=== PATIENT | male | born 1960 | race Two or more races ===

== ENCOUNTER 2020-10-13 09:48 | Outpatient (REF) | payer BC, SELFPAY ==
[2020-10-13 10:39] LABS: MANUAL DIFF FLAG NO
[2020-10-13 10:43] LABS: Basophils Percent Auto 0.6 % (0-2); Eosinophils Absolute Auto 0.2 X10*3/uL (0.0-0.4); Eosinophils Percent Auto 2.5 % (0-4); Hemoglobin 13.7 g/dl (14.0-18.0); Imm Gran Abs Auto 0.02 X10*3/uL (0.00-0.03); Imm Gran Pct Auto 0.3 % (0.0-0.4); Lymphocytes Absolute Auto 2.2 X10*3/uL (1.2-4.9); Lymphocytes Percent Auto 33.7 % (20-40); Mean Corpuscular HGB Conc 32.6 g/dl (31.0-36.0); Mean Corpuscular Hemoglobin 30.4 pg (27.0-33.0); Mean Corpuscular Volume 93.1 fL (80-98); Mean Platelet Volume 10.9 fL (9.4-12.4); Monocytes Absolute Auto 0.4 X10*3/uL (0.1-1.2); Monocytes Percent Auto 6.3 % (2-11); Neutrophils Absolute Auto 3.7 X10*3/uL (2.0-8.3); Neutrophils Percent Auto 56.6 % (45-73); Platelet Count 282 X10*3/uL (160-400); Red Blood Count 4.51 X10*6/uL (4.60-5.80); Red Cell Distribution Width 12.6 % (11.0-16.0); White Blood Count 6.5 X10*3/uL (4.8-10.8)
[2020-10-13 11:10] LABS: Alanine Aminotransferase 16 U/L (0-40); Alkaline Phosphatase 66 U/L (39-117); Anion Gap 10 (12-20); Aspartate Amino Transferase 14 U/L (5-37); Bilirubin Total 1.7 mg/dL (0.0-1.0); Blood Urea Nitrogen 15 mg/dL (9-16); Calcium 9.3 mg/dL (8.4-10.2); Carbon Dioxide 28 mmol/L (22-29); Chloride 107 mmol/L (96-108); Cholesterol 195 mg/dL; Estimated Glomerular Filt Rate > 60; Glucose Random 104 mg/dL (60-115); HDL Cholesterol 42 mg/dL; LDL Cholesterol Calculated 141 mg/dl; Potassium 4.2 mmol/L (3.3-5.1); Sodium 141 mmol/L (135-145); Total Protein 6.6 g/dL (6.5-8.0); Triglycerides 64 mg/dL
== END 2020-10-13 09:49 | disposition home or self-care (01) ==
LOC: HO.LAB 09:48
PROVIDERS: PCP Internal Medicine; Visit Provider Internal Medicine
DX: E78.00 Pure hypercholesterolemia, unspecified (principal); I10 Essential (primary) hypertension; J01.80 Other acute sinusitis; Z86.010 Personal history of colon polyps
CPT/HCPCS: 36415; 80053; 80061; 85025

== ENCOUNTER 2021-06-20 10:54 | Outpatient (REF) | payer BC, SELFPAY ==
[2021-06-20 12:23] LABS: Alanine Aminotransferase 42 U/L (0-40); Albumin Level 4.1 g/dL (3.5-5.0); Alkaline Phosphatase 77 U/L (39-117); Anion Gap 12 (12-20); Aspartate Amino Transferase 21 U/L (5-37); Bilirubin Total 2.4 mg/dL (0.0-1.0); Blood Urea Nitrogen 14 mg/dL (9-16); Calcium 9.5 mg/dL (8.4-10.2); Carbon Dioxide 29 mmol/L (22-29); Chloride 106 mmol/L (96-108); Cholesterol 132 mg/dL; Estimated Glomerular Filt Rate > 60; Glucose Random 104 mg/dL (60-115); HDL Cholesterol 36 mg/dL; LDL Cholesterol Calculated 80 mg/dl; Sodium 143 mmol/L (135-145); Total Protein 6.8 g/dL (6.5-8.0); Triglycerides 83 mg/dL
== END 2021-06-20 10:55 | disposition home or self-care (01) ==
LOC: HO.LAB 10:54
PROVIDERS: PCP Internal Medicine; Visit Provider Internal Medicine
DX: E78.00 Pure hypercholesterolemia, unspecified (principal); I10 Essential (primary) hypertension; M26.623 Arthralgia of bilateral temporomandibular joint
CPT/HCPCS: 36415; 80053; 80061

== ENCOUNTER 2021-12-24 15:29 | Outpatient (REF) | payer BC, SELFPAY ==
[2021-12-24 15:39] LABS: MANUAL DIFF FLAG NO
[2021-12-24 16:12] LABS: Basophils Percent Auto 0.4 % (0-2); Eosinophils Absolute Auto 0.2 X10*3/uL (0.0-0.4); Eosinophils Percent Auto 2.1 % (0-4); Hematocrit 42.7 % (42.0-52.0); Hemoglobin 14.3 g/dl (14.0-18.0); Imm Gran Abs Auto 0.02 X10*3/uL (0.00-0.03); Imm Gran Pct Auto 0.3 % (0.0-0.4); Lymphocytes Absolute Auto 2.5 X10*3/uL (1.2-4.9); Lymphocytes Percent Auto 35.6 % (20-40); Mean Corpuscular HGB Conc 33.5 g/dl (31.0-36.0); Mean Corpuscular Hemoglobin 30.3 pg (27.0-33.0); Mean Corpuscular Volume 90.5 fL (80.0-98.0); Mean Platelet Volume 10.6 fL (9.4-12.4); Monocytes Absolute Auto 0.6 X10*3/uL (0.1-1.2); Monocytes Percent Auto 9.1 % (2-11); Neutrophils Absolute Auto 3.7 x10*3/uL (2.0-8.3); Neutrophils Percent Auto 52.5 % (45-73); Platelet Count 284 X10*3/uL (160-400); Red Blood Count 4.72 X10*6/uL (4.60-5.80); Red Cell Distribution Width 12.4 % (11.0-16.0); White Blood Count 7.1 X10*3/uL (4.8-10.8)
[2021-12-24 16:29] LABS: Alanine Aminotransferase 23 U/L (0-40); Albumin Level 4.4 g/dL (3.5-5.0); Alkaline Phosphatase 69 U/L (39-117); Anion Gap 15 (12-20); Aspartate Amino Transferase 18 U/L (5-37); Bilirubin Total 2.4 mg/dL (0.0-1.0); Blood Urea Nitrogen 17 mg/dL (9-16); Calcium 9.6 mg/dL (8.4-10.2); Carbon Dioxide 26 mmol/L (22-29); Chloride 105 mmol/L (96-108); Cholesterol 163 mg/dL; Estimated Glomerular Filt Rate > 60; Glucose Random 99 mg/dL (60-115); HDL Cholesterol 39 mg/dL; LDL Cholesterol Calculated 108 mg/dl; Potassium 3.7 mmol/L (3.3-5.1); Sodium 142 mmol/L (135-145); Triglycerides 81 mg/dL
[2021-12-24 16:51] LABS: Thyroid Stimulating Hormone 1.82 uIU/mL (0.32-4.0)
== END 2021-12-24 15:30 | disposition home or self-care (01) ==
LOC: HO.LAB 15:29
PROVIDERS: PCP Internal Medicine; Visit Provider Internal Medicine
DX: E78.00 Pure hypercholesterolemia, unspecified (principal); I10 Essential (primary) hypertension
CPT/HCPCS: 36415; 80053; 80061; 84443; 85025

== ENCOUNTER 2022-06-18 10:33 | Outpatient (REF) | payer BC, SELFPAY ==
[2022-06-18 12:29] LABS: Alanine Aminotransferase 31 U/L (0-40); Albumin Level 4.1 g/dL (3.5-5.0); Alkaline Phosphatase 73 U/L (39-117); Anion Gap 10 (12-20); Aspartate Amino Transferase 17 U/L (5-37); Bilirubin Total 1.9 mg/dL (0.0-1.0); Blood Urea Nitrogen 14 mg/dL (9-16); Calcium 9.4 mg/dL (8.4-10.2); Carbon Dioxide 31 mmol/L (22-29); Chloride 105 mmol/L (96-108); Cholesterol 165 mg/dL; Estimated Glomerular Filt Rate > 60; Glucose Random 106 mg/dL (60-115); HDL Cholesterol 35 mg/dL; LDL Cholesterol Calculated 109 mg/dl; Potassium 3.9 mmol/L (3.3-5.1); Sodium 142 mmol/L (135-145); Total Protein 6.8 g/dL (6.5-8.0); Triglycerides 106 mg/dL
[2022-06-18 12:30] LABS: Prostate Specific Antigen Scr 0.82 ng/mL (<0.05-4.0)
== END 2022-06-18 10:34 | disposition home or self-care (01) ==
LOC: HO.LAB 10:33
PROVIDERS: PCP Internal Medicine; Visit Provider Internal Medicine
DX: Z00.00 Encounter for general adult medical examination without abnormal findings (principal); Z12.5 Encounter for screening for malignant neoplasm of prostate; E78.00 Pure hypercholesterolemia, unspecified; H81.12 Benign paroxysmal vertigo, left ear; I10 Essential (primary) hypertension
CPT/HCPCS: 36415; 80053; 80061; 84153

== ENCOUNTER 2022-12-13 08:30 | Day surgery (SDC) | payer BC, SELFPAY ==
[2022-12-13 08:48] VITALS: BP 169/93; PULSE 91; RESP 16; TEMP 36.3; O2SAT 98; BMI 29.1
--- NOTE | 2022-12-13 09:29 | HO.ANESPROP2 ---
[facility] Past Medical History Medical History Former smoker Tubular adenoma HLD (hyperlipidemia) HTN (hypertension) Seasonal allergies Surgical History Surgical History H/O colonoscopy History of Problems with Anesthesia: No Social History Social History Advance Directives: No Advance Directives Information Provided: Yes Meds Allergies Allergy/AdvReac Type Severity Reaction Status Date / Time No Known Allergies Allergy Unverified 11/25/19 17:05 Home Medications Medication Instructions Recorded Confirmed Last Taken Type ibuprofen PRN Pain 12/12/22 12/12/22 Unknown History lisinopril 20 1 tab PO DAILY 12/12/22 12/12/22 Unknown History mg-hydrochlorothiazide 25 mg tablet pravastatin 2 tab PO DAILY 12/12/22 12/12/22 Unknown History Exam Exam Date and Time: December 13, 2022 0929 Height,Weight and Vital Signs: Height 5 ft 11 in Weight 94.801 kg Last Vital Signs Temp 97.3 F 12/13/22 08:48 Pulse 91 12/13/22 08:48 Resp 16 12/13/22 08:48 BP 169/93 H 12/13/22 08:48 Pulse Ox 98 12/13/22 08:48 O2 Del Method Room Air 12/13/22 08:48 Airway Mallampati Class: III TM Dist: >3cm Neck ROM: Full Loose/Missing/Broken Teeth: No Heart: RRR Lungs: CTA Assessment and Plan Assessment Anesthesia Assessment: Anesthesia Plan Discussed and Chart Reviewed Final Anesthetic Review History of Problems with Anesthesia: No NPO: Yes ASA Class: II Final Preanesthetic Review: Meds/Allgs Chart Reviewed, Consent Obtained/Reviewed and Anes Risks/Benef Reviewed Patient Risk: Low Procedure Risk: Low Anesthetic Plan Anesthetic Plan: MAC: Disposition: Standard PACU
--- NOTE | 2022-12-13 09:52 | MHC.SHP ---
Pre-Procedural Eval Section A Date of Service: 12/13/22 Section B Chief Complaint: Encounter for screening for malignant neoplasm of Details of Present Illness: see H&P no changes Relevant Family History (Specify if Yes): No Relevant Social History: None Present Medications: see Short Stay Collaborative assessment Medical History: No relevant PMH History of Previous Operations: No relevant previous surgery Allergies: Allergies Allergy/AdvReac Type Severity Reaction Status Date / Time No Known Allergies Allergy Unverified 11/25/19 17:05 Review of Systems Sugical H&P ROS: Negative: Constitution, Cardiovascular, Respiratory, Neurological, Psychiatric, Hem-Onc, Allergic/Immunologic, Gastrointestinal, Genitourinary, Musculoskeletal, Integumentary, Endocrine and Eyes/Ears/Nose/Throat Exam Surgical H&P Exam: Normal: HEENT, Normal: Heart, Normal: Lungs, Normal: Extremities, Normal: Abdomen, Normal: Skin and Normal: Neurological Plan Diagnosis/Plan: Unchanged I have reviewed the history and physical and performed a pertinent physical examination on my patient. No changes have occurred unless specified. Time Spent With Patient Time: Total time managing care of this patient today ____ minutes.
--- NOTE | 2022-12-13 10:24 | PM.OP ---
Brief Operative Note Date of Service: 12/13/22 Pre-op diagnosis: screening Post-op diagnosis: same Procedure: colonoscopy Surgeon: Dakota Grossman MD Anesthesia: MAC Was an Import/Export Specialist used for this Procedure?: No Estimated blood loss (mL): 2 Pathology: other Condition: stable Disposition: PACU
[2022-12-13 10:25] VITALS: BP 128/72; PULSE 75; RESP 18; TEMP 36.3; O2SAT 97
[2022-12-13 10:40] VITALS: BP 141/91; PULSE 74; RESP 18; TEMP 36.7; O2SAT 98
--- NOTE | 2022-12-13 13:00 | OP_ITS ---
DATE OF SERVICE: 12/13/2022 SURGEON: Dakota Grossman MD INDICATIONS: Colon cancer screening, prior history of adenomatous colon polyps. PREOPERATIVE DIAGNOSIS: POSTOPERATIVE DIAGNOSIS: PROCEDURE PERFORMED: Colonoscopy to the terminal ileum with biopsy. ESTIMATED BLOOD LOSS: COMPLICATIONS: ANESTHESIA: Monitored anesthesia care. ASSISTANTS: SPECIMENS: DESCRIPTION OF PROCEDURE: A history and physical was performed. The risks and benefits of the procedure were explained to the patient. Informed consent was obtained. The patient was placed in the left lateral decubitus position. A digital rectal exam was performed and was found to be normal. The Olympus pediatric video colonoscope was introduced into the rectum and advanced to the cecum. The cecum was identified by transillumination, palpation, and identification of the ileocecal valve. Examination was performed. The scope was removed. He tolerated the procedure well and was returned to the recovery area in stable condition. FINDINGS: The terminal ileum was examined and this appeared normal. The visualized colonic mucosa was normal. The quality of prep was good. A single polyp measuring less than 5 mm was identified at 15 cm from the anal verge. This was removed with a biopsy forceps. Retroflexed examination showed small internal hemorrhoids. IMPRESSION: Colon polyp. RECOMMENDATION: Follow up biopsy results. MD PIA Sandhu/LENORE / [id number]
== END 2022-12-13 11:15 | disposition home or self-care (01) ==
PROVIDERS: PCP Internal Medicine; Visit Provider Internal Medicine Gastroenterology
PROC: 0DJD8ZZ Inspection of Lower Intestinal Tract, Via Natural or Artificial Opening Endoscopic (ICD-10-PCS; CPT 45378; principal; 2022-12-13 09:30)
DX: Z12.11 Encounter for screening for malignant neoplasm of colon (principal); Z86.010 Personal history of colon polyps; K63.5 Polyp of colon; K64.8 Other hemorrhoids; I10 Essential (primary) hypertension; E78.5 Hyperlipidemia, unspecified; Z79.1 Long term (current) use of non-steroidal anti-inflammatories (NSAID); Z79.899 Other long term (current) drug therapy; Z87.891 Personal history of nicotine dependence
CPT/HCPCS: 45380; 88305

== ENCOUNTER 2023-01-22 07:45 | Outpatient (REF) | payer BC, SELFPAY ==
[2023-01-22 08:25] LABS: MANUAL DIFF FLAG NO
[2023-01-22 08:40] LABS: Basophils Absolute Auto 0.1 X10*3/uL (0.0-0.2); Basophils Percent Auto 0.7 % (0-2); Eosinophils Absolute Auto 0.2 X10*3/uL (0.0-0.4); Eosinophils Percent Auto 2.7 % (0-4); Hematocrit 41.9 % (42.0-52.0); Hemoglobin 14.2 g/dl (14.0-18.0); Imm Gran Abs Auto 0.02 X10*3/uL (0.00-0.03); Imm Gran Pct Auto 0.3 % (0.0-0.4); Lymphocytes Absolute Auto 2.8 X10*3/uL (1.2-4.9); Mean Corpuscular HGB Conc 33.9 g/dl (31.0-36.0); Mean Corpuscular Hemoglobin 30.5 pg (27.0-33.0); Mean Corpuscular Volume 90.1 fL (80.0-98.0); Mean Platelet Volume 10.6 fL (9.4-12.4); Monocytes Absolute Auto 0.6 X10*3/uL (0.1-1.2); Monocytes Percent Auto 7.8 % (2-11); Neutrophils Percent Auto 52.5 % (45-73); Platelet Count 275 X10*3/uL (160-400); Red Blood Count 4.65 X10*6/uL (4.60-5.80); Red Cell Distribution Width 12.3 % (11.0-16.0); White Blood Count 7.7 X10*3/uL (4.8-10.8)
[2023-01-22 09:33] LABS: Alanine Aminotransferase 24 U/L (0-40); Albumin Level 4.2 g/dL (3.5-5.0); Alkaline Phosphatase 73 U/L (39-117); Anion Gap 12 (12-20); Aspartate Amino Transferase 18 U/L (5-37); Blood Urea Nitrogen 16 mg/dL (9-16); Calcium 9.4 mg/dL (8.4-10.2); Carbon Dioxide 30 mmol/L (22-29); Chloride 105 mmol/L (96-108); Cholesterol 151 mg/dL (<200); Estimated Glomerular Filt Rate > 60; Glucose Random 106 mg/dL (60-115); HDL Cholesterol 40 mg/dL (>40); LDL Cholesterol Calculated 97 mg/dL (<100); Potassium 3.6 mmol/L (3.3-5.1); Sodium 143 mmol/L (135-145); Triglycerides 70 mg/dL (<150)
== END 2023-01-22 07:46 | disposition home or self-care (01) ==
LOC: HO.LAB 07:45
PROVIDERS: PCP Internal Medicine; Visit Provider Internal Medicine
DX: E78.00 Pure hypercholesterolemia, unspecified (principal); I10 Essential (primary) hypertension; M54.50 Low back pain, unspecified
CPT/HCPCS: 36415; 80053; 80061; 85025

== ENCOUNTER 2023-08-12 07:33 | Outpatient (REF) | payer BC, SELFPAY ==
[2023-08-12 08:55] LABS: Alanine Aminotransferase 20 U/L (0-40); Albumin Level 4.2 g/dL (3.5-5.0); Alkaline Phosphatase 62 U/L (39-117); Anion Gap 12 (12-20); Aspartate Amino Transferase 18 U/L (5-37); Bilirubin Total 2.1 mg/dL (0.0-1.0); Blood Urea Nitrogen 11 mg/dL (9-16); Calcium 9.8 mg/dL (8.4-10.2); Carbon Dioxide 29 mmol/L (22-29); Chloride 104 mmol/L (96-108); Estimated Glomerular Filt Rate > 60; Glucose Random 114 mg/dL (60-115); Potassium 3.5 mmol/L (3.3-5.1); Sodium 141 mmol/L (135-145); Total Protein 7.1 g/dL (6.5-8.0)
[2023-08-12 08:58] LABS: Prostate Specific Antigen Scr 1.11 ng/mL (<0.05-4.0)
== END 2023-08-12 07:34 | disposition home or self-care (01) ==
LOC: HO.LAB 07:33
PROVIDERS: PCP Internal Medicine; Visit Provider Internal Medicine
DX: Z00.00 Encounter for general adult medical examination without abnormal findings (principal); E78.00 Pure hypercholesterolemia, unspecified; I10 Essential (primary) hypertension; N40.0 Benign prostatic hyperplasia without lower urinary tract symptoms; Z68.29 Body mass index [BMI] 29.0-29.9, adult; Z12.5 Encounter for screening for malignant neoplasm of prostate
CPT/HCPCS: 36415; 80053; 84153

== ENCOUNTER 2024-01-05 08:27 | Outpatient (REF) | payer BC, SELFPAY | END 2024-01-05 08:28 | disposition home or self-care (01) | LOC: HO.HOSX 08:27 | PROVIDERS: Visit Provider Orthopaedic Surgery | DX: M25.512 Pain in left shoulder (principal) | CPT/HCPCS: 20610; 73030; J0665; J1100; J2003 ==

== ENCOUNTER 2024-01-05 08:52 | Outpatient (AMB) | payer BC, SELFPAY ==
--- NOTE | 2024-01-05 08:55 | A.OFFVIS_ITS ---
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 Patient reports that he has had ongoing left shoulder pain for about 2 months now. He reports that aboutk 20 years ago he had cortisone injections to the left shoulder which were very helpful. The pain is felt intermittently, he has numbness and tingling that radiates to the 4th and 5th digits which is exascerbated when resing on the elbow. 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 He has had pain for about 2 months. Denies injury. States about 15 years ago he had injections in the left shoulder which helped until now. Describes recently having some numbness and tingling in his fingers and some pain in his lateral neck. He has not been treated and states his insurance does not pay for physical therapy. 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 Negative provocative tests with mild pain on empty can testing. Otherwise unremarkable shoulder exam. 5/5 strength with wrist flexion extension elbow flexion-extension deltoids. Negative Spurling's. Office Procedures Joint Injection/Aspiration Joint Injection/Aspiration Details: Injected 1 mL of Decadron and 3 mL 1% lidocaine and 3 mL of 0.25% Marcaine. Site was prepped using aseptic technique. Patient tolerated the procedure well. Primary Site: left shoulder Approach Used: posterolateral Coding 63952 - Large joint Procedure code (CPT) selection complete Results Reviewed Results Reviewed: Normal shoulder radiographs Assessment & Plan Assessment & Plan (1) Left shoulder pain: Code(s): M25.512 - Pain in left shoulder Category: Medical Plan: This is a 63-year-old gentleman with left shoulder pain. He has had recent numbness and tingling in the hand but this seems transient and I am unable to find any objective evidence of spine or shoulder pathology. He seems like he has been improving and I recommend physical therapy and activity modification. He states physical therapy is not pay for by his insurance and watching YouTube videos. He states the injection has been helpful in the past and so I injected his left shoulder. If his pain does not improve I would be suspicious of his neck. He can follow up on an as-needed basis. Orders: Orders XR shoulder LT min 2V Today M25.519 - Pain in unspecified shoulder Coding Level of Care Code New Pt Level 3 (87953) Diagnoses Left shoulder pain M25.512 CPT Codes Coding - 33484 Large joint: 00669 - Large joint ([id number])
[2024-01-05 09:01] VITALS: BMI 29.3
== END 2024-01-05 10:13 | disposition home or self-care (01) ==
PROVIDERS: PCP Internal Medicine; Visit Provider Orthopaedic Surgery
DX: M25.512 Pain in left shoulder (principal)
CPT/HCPCS: 20610; 99203

== ENCOUNTER 2024-09-29 08:08 | Outpatient (REF) | payer BC, SELFPAY ==
--- OUTSIDE RECORDS SUMMARY | 2024-09-29 08:14 | XMS_ITS | Patient Health Record ---
Author Organization [facility] Address [address] [place] [address] Care Team Providers Care Pilot Plant Research Technician Name Role Phone Gertrude Mazariegos Primary Care Provider UnavailDakota Vieira Jr Unavailable Allergies Allergen (clinical drug ingredient) Drug/Non Drug Allergy documented on EMR Reaction Allergy Type Onset Date Status seasonal (uncoded) Unknown Allergy A ctive Reason For Referral No Information Medications Medication SIG (Take, Route, Frequency, Duration) Notes Start Date End Date Status MiraLax (colon prep) 17 GM/SCOOP mixed with Gatorade or Crystal Light Orally begin at 5:00 p.m. the day before the procedure for 1 day 10/28/2022 Active Lisinopril-hydroCHLOROthiaz jess 20-12.5 MG 1 tablet Orally Once a day Active Ibuprofen 200 MG Orally prn Ac tive Pravastatin Sodium 10 MG 2 tablets Orall y Once a day for 30 day(s) Active Social History Tobacco Use: Social History Observation Description Date Details (start date - stop date) Former Smoker NA - NA Tobacco Use/Smoking Question Answer Notes Patient is a former smoker How long has it been since you last smoked? > 10 years Alcohol Screen Question Answer Notes Did you have a drink contain ing alcohol in the past year? Yes How often did you have a dri nk containing alcohol in the past year? Monthly or less (1 point) How many drinks did you have on a typical day when you were drinking in the past year? 1 or 2 drinks (0 point) How often did you have 6 or more drinks on one occasion in the past year? 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) use of non-steroidal anti-inflammatorie s (NSAID) (Z79.1) Active confirmed Problem 585056001 Encounter for other preprocedural examination (Z01.818) Active confirmed Plan Of Treatment Future Test Test Name Order Date COLONOSCOPY 09/25/2011 COLONOSCOPY 09/17/2017 COLONOSCOPY 10/28/2022 Insurance Providers Payer Name Payer Address Payer Phone Subscriber Number Group Number Insured Name Patient Relationship to Insured Coverage Start Date Coverage End Date [facility] [address] [place], [place] [phone] [phone] [id number] BROCK WASHINGTON Self - patient is the insured Medical (General) History Medical History History ICD Code HTN Hyperlipidemia Colonoscopy 11/19, tubular adenoma, five- year followup
[2024-09-29 08:25] LABS: MANUAL DIFF FLAG NO
[2024-09-29 09:43] LABS: Hematocrit 42.8 % (42.0-52.0); Hemoglobin 14.0 g/dl (14.0-18.0); Imm Gran Abs Auto 0.02 X10*3/uL (0.00-0.03); Imm Gran Pct Auto 0.2 % (0.0-0.4); Lymphocytes Absolute Auto 2.5 X10*3/uL (1.2-4.9); Mean Corpuscular HGB Conc 32.7 g/dl (31.0-36.0); Mean Corpuscular Hemoglobin 30.2 pg (27.0-33.0); Mean Corpuscular Volume 92.4 fL (80.0-98.0); NRBC Abs Auto 0.000 X10*3/uL (0.0-0.012); NRBC Pct Auto 0.0 /100WBC (0.0-0.2); Platelet Count 274 X10*3/uL (160-400); Red Blood Count 4.63 X10*6/uL (4.60-5.80); White Blood Count 8.1 X10*3/uL (4.8-10.8)
[2024-09-29 10:35] LABS: Alanine Aminotransferase 40 U/L (0-40); Albumin Level 4.2 g/dL (3.5-5.0); Alkaline Phosphatase 74 U/L (39-117); Anion Gap 11 (12-20); Aspartate Amino Transferase 28 U/L (5-37); Blood Urea Nitrogen 13 mg/dL (9-16); Calcium 9.0 mg/dL (8.4-10.2); Carbon Dioxide 27 mmol/L (22-29); Chloride 109 mmol/L (96-108); Cholesterol 205 mg/dL (<200); Estimated Glomerular Filt Rate > 60; HDL Cholesterol 46 mg/dL (>40); Potassium 3.8 mmol/L (3.3-5.1); Sodium 143 mmol/L (135-145); Total Protein 6.9 g/dL (6.5-8.0); Triglycerides 78 mg/dL (<150)
== END 2024-09-29 08:09 | disposition home or self-care (01) ==
LOC: HO.LAB 08:08
PROVIDERS: PCP Internal Medicine; Visit Provider Internal Medicine
DX: E78.00 Pure hypercholesterolemia, unspecified (principal); I10 Essential (primary) hypertension; J30.89 Other allergic rhinitis; L84 Corns and callosities
CPT/HCPCS: 36415; 80053; 80061; 85025

== ENCOUNTER 2024-12-08 10:50 | Outpatient (AMB) | payer BC, SELFPAY ==
--- NOTE | 2024-12-08 10:51 | MHC.OFFVIS ---
Intake Visit Reasons: Hematuria Intake Note: patient presents today for: new pt hematuria urology medications: none blood thinners: none Leather Toggler Required: No Accompanied by: Self / Same As Patient Allergies No Known Allergies Allergy (Unverified 12/08/24 11:22) Medication List - Last Reconciled 12/08/24 by ERICA Mccain [ibuprofen PRN] lisinopril-hydrochlorothiazide 20-25 mg 1 tab PO DAILY loratadine 10 mg PO DAILY [pravastatin 2 tabs PO DAILY] HPI Comments Details: Venkatesh is a very pleasant 64 year old male patient of Dr. Mazariegos. He has a past medical history of hypertension, tubular adenoma, hyperlipidemia, and seasonal allergies. He presents to the office today as a new patient for gross hematuria. In discussion with the patient today he reports shortly after his annual visit with his PCP he experienced 2 episodes of gross hematuria at which time his PCP ordered a CT in recommendations were made for urology referral for further assessment evaluation. When asked he denies any history of smoking and or workplace chemical exposure however and patient's chart it does appear is documented that patient is a former smoker. He reports he has had no further episodes of gross hematuria since initial event sometime in September or October. We did discussed at length potential causes of gross hematuria as well as further workup to include cystoscopy. We discussed risks and benefits of these interventions. He would like to continue with surveillance monitoring. He otherwise denies any bothersome urinary issues. In review of patient's chart it appears PSAs are as follows: 06/30 0.8, 08/[address] abdomen and pelvis without contrast imaging report was reviewed 11/01 no acute or suspicious findings on limited noncontrast evaluation. No urinary tract calculi identified. Moderate prostatomegaly. We did discuss reasons for blood in the urine may include but are not limited to kidney stones, cancer in the urinary tract, BPH, kidney stone disease or inflammatory conditions of the urinary tract. I have discussed workup to include cystoscopy evaluation. He does not wish to currently undergo cystoscopy at this time. We did discussed potential delay in treatment. Will continue with surveillance monitoring. All questions were answered. He otherwise offers no other issues or concerns at this time. 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 Const All systems reviewed & are unremarkable except as noted in HPI and below Physical Exam Const General: cooperative, healthy appearing, comfortable, no acute distress, well developed, alert and awake Orientation/consciousness: patient oriented x3 Limitations: no limitations HEENT Head: Yes normal to inspection, Yes normocephalic and Yes atraumatic Ears: hearing grossly normal bilaterally Eyes General: appearance normal, both eyes and all related structures Neck Neck: Yes normal visual inspection and Yes trachea midline Chest Chest palpation & inspection: normal inspection of the chest Resp Effort & Inspection: normal respiratory effort and able to speak in complete sentences Cardio Rate: regular rate GI Inspection: Yes normal to inspection General: Yes no CVA tenderness Back/Spine/Pelvis Back: no CVA tenderness Skin General skin exam: no rashes or lesions noted Neuro General: patient oriented x3 Extrem General: Yes normal to inspection Psych Appearance: grossly normal and well kempt Mental Status: mental status grossly normal Speech and movement: Normal speech and movement present and Clear speech present Affect: normal affect Attitude: cooperative Thought process: Normal thought process present Thought content: Normal thought content present Insight: Fair insight present (Psych) Judgement: Fair judgement present (Psych) Assessment & Plan Assessment & Plan (1) Gross hematuria: Code(s): R31.0 - Gross hematuria Category: Medical Plan Unable to obtain urine for urinalysis today however orders placed for urine cytology as well as urinalysis. We did discussed potential causes of gross hematuria as well as further interventions to include cystoscopy; risks and benefits were discussed. All questions were answered. He otherwise denies any bothersome urinary issues. He reports be happy with current voiding parameters. Will continue with surveillance monitoring at this time. Follow-up in 6 months with urinalysis; or sooner with any issues, concerns, and or questions. Orders: Orders Urine Cytology 12/08/24 R31.0 - Gross hematuria UA w Microscopic 12/08/24 R31.0 - Gross hematuria Patient Instructions: The patient had an opportunity to ask questions regarding the treatment plan. All questions were answered. Physical exam, labs, and imaging were discussed and reviewed in detail. As well as risks, benefits, and discussion of treatment choices. No major barriers to understanding were identified. The patient expressed understanding and agreement with the above treatment plan. The patient was made aware they should contact our office by phone for worsening of their current condition, the appearance of new symptoms, or with any questions or concerns. Compliance is encouraged with any medications and follow up testing that is ordered. It is a privilege to be allowed the opportunity to participate in? your urological care.? Again, if you have any questions or concerns If you have any questions or concerns please do not hesitate to contact me. The office is [phone]. This note is constructed using voice recognition software. While every effort has been made to ensure accuracy perfect bind machine operator errors may have been included. Yours sincerely, ERICA Mccain Coding Level of Care Code New Pt Level 3 (25580) Diagnoses Gross hematuria R31.0
--- OUTSIDE RECORDS SUMMARY | 2024-12-08 12:27 | XMS_ITS | Patient Health Record ---
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 [address] [place], [place] [id number] BROCK WASHINGTON Self - patient is the insured Medical (General) History Medical History History ICD Code HTN Hyperlipidemia Colonoscopy 11/19, tubular adenoma, five- year followup
== END 2024-12-08 11:35 | disposition home or self-care (01) ==
LOC: HO.HUSH 10:51
PROVIDERS: PCP Internal Medicine; Visit Provider Nurse Practitioner Family
DX: R31.0 Gross hematuria (principal)
CPT/HCPCS: 99203

== ENCOUNTER 2025-01-18 08:19 | Emergency (ER) | payer BC, SELFPAY ==
--- NOTE | ~2025-01-18 | XR_ITS ---
EXAMINATION: XR CHEST CLINICAL INFORMATION: chest pain COMPARISON: None available. TECHNIQUE: Frontal view of the chest was obtained. FINDINGS: The lungs are well-expanded and clear of acute process. Heart size and pulmonary vascularity is normal. No gross bony abnormality seen. XR/XR chest 1V IMPRESSION: Unremarkable chest exam. Electronically signed by: Sukhdeep Shah MD 01/18/2025 09:[address] [facility]
--- NOTE | 2025-01-18 08:20 | ECG_ITS ---
Test Reason : chest pain Blood Pressure : */* mmHG Vent. Rate : 66 BPM Atrial Rate : 66 BPM P-R Int : 188 ms QRS Dur : 90 ms QT Int : 406 ms P-R-T Axes : 31 22 4 degrees QTcB Int : 425 ms Normal sinus rhythm Normal ECG When compared with ECG of 16-Dec-2004 21:18, No significant change was found Referred By: Generic ED Physician Electronically Signed By: TANNA OSORIO MD
[2025-01-18 08:27] VITALS: BP 175/89; PULSE 65; RESP 18; TEMP 36.1; O2SAT 97; BMI 29.4
--- NOTE | 2025-01-18 08:53 | ED.CHESTPAIN ---
HPI - Chest Pain General Chief Complaint: Chest Pain Stated Complaint: CP/ Back pain Time Seen by Provider: 01/18/25 08:34 History of Present Illness ED Provider: Dr. Sesay HPI narrative: 64 y/o M patient; PMH HTN, HLD; presents from home reporting intermittent stabbing chest pain. He states it starts in his back and travels to the left side of his chest/upper arm. He otherwise denies: fever or chills, SOB, cough/congestion, nausea/vomiting, abdominal pain. Patient states his PCP recently started him on Metoprolol for palpitations, he has a return visit scheduled with her in approx 2 weeks. Related Data Home Medications ?Medication ?Instructions ?Recorded ?Confirmed ibuprofen PRN Pain 12/12/22 12/08/24 lisinopril 20 1 tab PO DAILY 12/12/22 12/08/24 mg-hydrochlorothiazide 25 mg tablet pravastatin 2 tab PO DAILY 12/12/22 12/08/24 loratadine 10 mg tablet 10 mg PO DAILY 01/05/24 12/08/24 Allergies Allergy/AdvReac Type Severity Reaction Status Date / Time No Known Allergies Allergy Verified 01/18/25 08:30 Review of Systems Review of Systems: Yes all other systems are reviewed and are negative PMFSH Past Medical History Attestation statement: The following information was validated with the patient. Source: old records reviewed Medical History Former smoker Tubular adenoma HLD (hyperlipidemia) HTN (hypertension) Seasonal allergies Surgical History H/O colonoscopy Social History Social History Advance Directives: No Advance Directives Information Provided: Yes Do you have a plan to hurt others: No Plan Current occupational status: employed Current occupation: [employer] - Physical Exam Vital Signs: Vital Signs: Last Vital Signs Temp 96.9 F 01/18/25 08:27 Pulse 60 01/18/25 11:18 Resp 18 01/18/25 11:18 BP 131/70 01/18/25 11:18 Pulse Ox 95 01/18/25 11:18 O2 Del Method Room Air 01/18/25 11:18 BMI result Body Mass Index 29.4 Patient is afebrile and hemodynamically stable. Const: General: cooperative and no acute distress Orientation/consciousness: patient oriented x3 HEENT: Head: Yes normal to inspection and Yes atraumatic Eyes: General: appearance normal, both eyes and all related structures Pupils: Equal, round and reactive pupils present EOM: EOMs intact bilaterally Neck: Neck: Yes normal visual inspection, Yes full ROM, Yes supple and No tender Chest: Chest palpation & inspection: normal inspection of the chest and normal palpation of entire chest wall Resp: Effort & Inspection: normal respiratory effort, able to speak in complete sentences and no cough Auscultation: clear to auscultation bilaterally Cardio: Rate: regular rate Rhythm: regular rhythm Peripheral pulses: Peripheral pulses 2+ throughout GI: Inspection: Yes normal to inspection, No Abdominal wall edema and No distended Palpation (GI): Soft to palpation, not firm, nontender, no guarding and not rigid Auscultation: normal bowel sounds Back/Spine/Pelvis: Back: No back tenderness Neuro: General: patient oriented x3 Cranial nerves: Yes Equal, round and reactive pupils present Course Course Course Narrative: Patient is afebrile and hemodynamically stable. Will obtain CXR, EKG, and labs. Labs reviewed. No significant leukocytosis. No significant anemia. Initial troponin is undetectable. Ordered for 2nd troponin. CXR is unremarkable. 2nd troponin is negative. D-dimer is negative, lower suspicion for pulmonary emboli. No evidence of aortic dissection with normal vitals, CXR, and exam. Plan: Discharge to home with plan to follow up with PCP as scheduled Return precautions provided Medical Decision Making Lab Data 01/18/25 08:53 01/18/25 08:53 Labs: Lab Results 01/18/25 01/18/25 Range/Units 08:53 11:19 WBC 8.9 (4.8-10.8) X10*3/uL RBC 4.72 (4.60-5.80) X10*6/uL Hgb 14.4 (14.0-18.0) g/dl Hct 43.1 (42.0-52.0) % MCV 91.3 (80.0-98.0) fL MCH 30.5 (27.0-33.0) pg MCHC 33.4 (31.0-36.0) g/dl RDW 12.2 (11.0-16.0) % Plt Count 301 (160-400) X10*3/uL MPV 10.4 (9.4-12.4) fL Immature Gran % (Auto) 0.2 (0.0-0.4) % Neut % (Auto) 55.9 (45-73) % Lymph % (Auto) 34.5 (20-40) % [place] % (Auto) 7.2 (2-11) % Eos % (Auto) 1.7 (0-4) % Baso % (Auto) 0.5 (0-2) % Lymph # (Auto) 3.1 (1.2-4.9) X10*3/uL [place] # (Auto) 0.6 (0.1-1.2) X10*3/uL Eos # (Auto) 0.2 (0.0-0.4) X10*3/uL Baso # (Auto) 0.0 (0.0-0.2) X10*3/uL Abs Immat Gran (auto) 0.02 (0.00-0.03) X10*3/uL Absolute Neuts (auto) 5.0 (2.0-8.3) x10*3/uL Absolute Nucleated RBC 0.000 (0.0-0.012) X10*3/uL Nucleated RBC % (auto) 0.0 (0.0-0.2) /100WBC D-Dimer High Sensitivty < 150 NG/ML Sodium 142 (135-145) mmol/L Potassium 3.4 (3.3-5.1) mmol/L Chloride 105 (96-108) mmol/L Carbon Dioxide 27 (22-29) mmol/L Anion Gap 13 (12-20) BUN 16 (9-16) mg/dL Creatinine 1.11 (0.5-1.4) mg/dL Estim Creat Clear Calc 80.3 Estimated GFR > 60 Random Glucose 126 H (60-115) mg/dL Calcium 9.5 (8.4-10.2) mg/dL Total Bilirubin 1.5 H (0.0-1.0) mg/dL Direct Bilirubin 0.4 (0.0-0.5) mg/dL AST 25 (5-37) U/L ALT 31 (0-40) U/L Alkaline Phosphatase 75 (39-117) U/L Troponin I High Sens < 2.7 < 2.7 (<3.5-35.0) ng/L Total Protein 7.1 (6.5-8.0) g/dL Albumin 4.3 (3.5-5.0) g/dL Lipase 34 (8-78) U/L Independent Interpretation I performed an independent interpretation of an: EKG Interpretation: EKG independently interpreted by myself as NST 66BPM with normal intervals Radiology Impression Discussion of test interpretation with radiology: I have reviewed the radiologist's reading. Radiologist Impression: EXAMINATION: XR CHEST CLINICAL INFORMATION: chest pain COMPARISON: None available. TECHNIQUE: Frontal view of the chest was obtained. FINDINGS: The lungs are well-expanded and clear of acute process. Heart size and pulmonary vascularity is normal. No gross bony abnormality seen. XR/XR chest 1V IMPRESSION: Unremarkable chest exam. Electronically signed by: Sukhdeep Shah MD 01/18/2025 09:11 AM [facility] Discharge Plan Discharge Clinical Impression: Chest pain Patient Disposition: Home, Self-Care Instructions: Chest Pain (ED) Additional Instructions: You were seen today for chest pain. You had x2 negative heart enzyme tests and a negative blood clot test. Your chest XR and EKG of your heart were reassuring. Please follow up with your primary doctor as planned. Discuss your recent emergency department visit. Discuss need for a possible cardiac event monitor. Return to the emergency department for: Changing or worsening chest pain Difficulty breathing Passing out Prescriptions: No Action lisinopril-hydrochlorothiazide 20-25 mg tablet 1 tab PO DAILY ibuprofen 200 mg PRN (Reason: Pain) pravastatin 10 mg tablet 2 tab PO DAILY loratadine 10 mg tablet 10 mg PO DAILY Print Language: Armenian
[2025-01-18 08:58] LABS: MANUAL DIFF FLAG NO
[2025-01-18 09:04] LABS: Hematocrit 43.1 % (42.0-52.0); Hemoglobin 14.4 g/dl (14.0-18.0); Imm Gran Abs Auto 0.02 X10*3/uL (0.00-0.03); Imm Gran Pct Auto 0.2 % (0.0-0.4); Lymphocytes Absolute Auto 3.1 X10*3/uL (1.2-4.9); Mean Corpuscular HGB Conc 33.4 g/dl (31.0-36.0); Mean Corpuscular Hemoglobin 30.5 pg (27.0-33.0); Mean Corpuscular Volume 91.3 fL (80.0-98.0); NRBC Abs Auto 0.000 X10*3/uL (0.0-0.012); NRBC Pct Auto 0.0 /100WBC (0.0-0.2); Platelet Count 301 X10*3/uL (160-400); Red Blood Count 4.72 X10*6/uL (4.60-5.80); White Blood Count 8.9 X10*3/uL (4.8-10.8)
[2025-01-18 09:16] LABS: Alanine Aminotransferase 31 U/L (0-40); Albumin Level 4.3 g/dL (3.5-5.0); Alkaline Phosphatase 75 U/L (39-117); Anion Gap 13 (12-20); Aspartate Amino Transferase 25 U/L (5-37); Blood Urea Nitrogen 16 mg/dL (9-16); Calcium 9.5 mg/dL (8.4-10.2); Carbon Dioxide 27 mmol/L (22-29); Chloride 105 mmol/L (96-108); Creatinine Clr Calc Pharmacy 80.3; Estimated Glomerular Filt Rate > 60; Lipase 34 U/L (8-78); Potassium 3.4 mmol/L (3.3-5.1); Sodium 142 mmol/L (135-145); Total Protein 7.1 g/dL (6.5-8.0)
--- OUTSIDE RECORDS SUMMARY | 2025-01-18 09:16 | XMS_ITS | Patient Health Record ---
Author Organization [facility] Address [address] [place] [address] Care Team Providers Care Trolley Operator Name Role Phone Gertrude Mazariegos Primary Care [...] at 5:00 p.m. the day before the procedure; Duration: 1 day 10/28/2022 Active Lisinopril-hydroCHLOROthiaz jess 20-12.5 MG 1 tablet Orally Once a day Active Ibuprofen 200 MG Orally prn Ac tive Pravastatin Sodium 10 MG 2 tablets Orall y Once a day; Duration: 30 day(s) Active Social History Tobacco Use: [...] Problem Status W/U Status Risk Notes Problem Colon cancer screening (823394989) Colon cancer screening (Z12.11) Active confirmed Problem intermediate current use of non-steroidal anti-inflammat ory drug (9381718784367 03) intermediate (current) use of non-steroidal anti-inflammatori es (NSAID) (Z79.1) Active confirmed Problem Pre-procedure evaluation check (922787728) Encounter for other preprocedural examination (Z01.818) Active confirmed Plan Of Treatment Future Test Test Name Order Date COLONOSCOPY 09/25/2011 COLONOSCOPY 09/17/2017 COLONOSCOPY 10/28/2022 Insurance Providers Payer Name Payer Address Payer Phone Subscriber Number Group Number Insured Name Patient Relationship to Insured Coverage Start Date Coverage End Date [facility] [address] [place], [place] [id number] [place] Self - patient is the insured Medical (General) History Medical History History ICD Code HTN Hyperlipidemia Colonoscopy 11/19, tubular adenoma, five- year followup
[2025-01-18 09:26] LABS: Troponin-I High Sensitivity < 2.7 ng/L (<3.5-35.0)
[2025-01-18 11:18] VITALS: BP 131/70; PULSE 60; RESP 18; O2SAT 95
[2025-01-18 11:40] LABS: D Dimer High Sensitivity < 150 NG/ML
[2025-01-18 11:51] LABS: Troponin-I High Sensitivity < 2.7 ng/L (<3.5-35.0)
[2025-01-18 12:31] VITALS: BP 131/70; PULSE 60; RESP 18; TEMP -17.7; TEMP 0; O2SAT 95
== END 2025-01-18 12:32 | disposition home or self-care (01) ==
PROVIDERS: Emergency Provider Emergency Medicine; PCP Internal Medicine
DX: R07.9 Chest pain, unspecified (principal); I10 Essential (primary) hypertension; E78.5 Hyperlipidemia, unspecified; Z87.891 Personal history of nicotine dependence
CPT/HCPCS: 36415; 71045; 80048; 80076; 83690; 84484; 85025; 85379; 93005; 99283; 99285

== ENCOUNTER → 2025-01-18 08:20 | Outpatient (BNV) | payer BC, SELFPAY | PROVIDERS: Emergency Provider Emergency Medicine; PCP Internal Medicine; Visit Provider Internal Medicine Cardiovascular Disease | DX: R07.9 Chest pain, unspecified (principal) | CPT/HCPCS: 93010 ==

== ENCOUNTER → 2025-01-18 08:31 | Outpatient (BNV) | payer BC, SELFPAY | PROVIDERS: Emergency Provider Emergency Medicine; PCP Internal Medicine; Visit Provider Radiology Diagnostic Radiology | DX: R07.9 Chest pain, unspecified (principal) | CPT/HCPCS: 71045 ==

== ENCOUNTER 2025-01-31 10:04 | Outpatient (REF) | payer BC, SELFPAY ==
[2025-01-31 11:10] LABS: Appearance Urine Clear; Glucose Urine UA Negative (Negative); PH 5.5 (5.0-9.0); Specific Gravity - Urine 1.010 (1.005-1.025)
[2025-01-31 11:30] LABS: Alanine Aminotransferase 26 U/L (0-40); Albumin Level 4.3 g/dL (3.5-5.0); Alkaline Phosphatase 74 U/L (39-117); Anion Gap 9 (12-20); Aspartate Amino Transferase 23 U/L (5-37); Blood Urea Nitrogen 15 mg/dL (9-16); Calcium 9.0 mg/dL (8.4-10.2); Carbon Dioxide 31 mmol/L (22-29); Chloride 107 mmol/L (96-108); Cholesterol 127 mg/dL (<200); Estimated Glomerular Filt Rate > 60; HDL Cholesterol 36 mg/dL (>40); Potassium 3.5 mmol/L (3.3-5.1); Sodium 143 mmol/L (135-145); Thyroid Stimulating Hormone 2.36 uIU/mL (0.32-4.0); Total Protein 7.0 g/dL (6.5-8.0); Triglycerides 99 mg/dL (<150)
== END 2025-01-31 10:05 | disposition home or self-care (01) ==
LOC: HO.10HDL 10:04
PROVIDERS: Referring Provider Internal Medicine; Visit Provider Nurse Practitioner Family
DX: R31.0 Gross hematuria (principal); I10 Essential (primary) hypertension; R00.2 Palpitations; E78.00 Pure hypercholesterolemia, unspecified; R51.9 Headache, unspecified
CPT/HCPCS: 36415; 80053; 80061; 81001; 84443; 88112